=== PATIENT | male | born 1990 | race Caucasian/White ===

== ENCOUNTER 2017-09-10 12:05 | Emergency (ER) | payer MEDICAID ==
[~2017-09-10] VITALS: Ht 185.4 cm; Wt 86.5 kg
[2017-09-10] MEDS ORDERED: MULT-257 PO (12:57)
[2017-09-10] MEDS ORDERED: KETOROLAC 30 MG/1 ML ONE (13:27)
[2017-09-10] MEDS ORDERED: KETOROLAC 30 MG/1 ML IM ONE (13:30)
[2017-09-10 14:18] LABS: TROPONIN I < 0.015 ng/mL (0.000-0.045)
[2017-09-10 15:21] VITALS: BP 128/53
== END 2017-09-10 15:24 | disposition home or self-care (01) ==
LOC: ED 15:10
DX: M94.0 Chondrocostal junction syndrome [Tietze] (principal)
CPT/HCPCS: 36415; 71046; 84484; 93005; 96372; 99285; J1885